=== PATIENT | female | born 1930 | race Caucasian/White ===

== ENCOUNTER 2018-03-30 15:07 | Inpatient (IN) ==
[2018-03-30] MEDS ORDERED: ONDANSETRON 4 MG/2 ML VIAL IV STA (15:23)
[2018-03-30] MEDS ORDERED: diphenhydrAMINE CAP 25 MG CAPSULE PO PRN (15:52)
[2018-03-30] MEDS ORDERED: hydrALAZINE 20 MG/1 ML VIAL IV PRN (15:56)
[2018-03-30] MEDS ORDERED: NITROGLYCERIN SL 0.4 MG TABLET SL PRN (15:56)
[2018-03-30] MEDS ORDERED: amLODIPine 5 MG TABLET PO STA (16:10)
[2018-03-30] MEDS: ENOXAPARIN 40 MG/0.4 ML SYRINGE SUBCUT SCH (18:36)
[2018-03-30] MEDS: ISOSORBIDE MONONITRATE 30 MG TABLET PO SCH (18:36)
[2018-03-30] MEDS: PANTOPRAZOLE 40 MG TABLET PO SCH (18:36)
[2018-03-30] MEDS: DOCUSATE SODIUM 100 MG CAPSULE PO SCH (21:25)
[2018-03-30] MEDS: ATORVASTATIN 80 MG TABLET PO SCH (21:25)
[2018-03-30] MEDS: rOPINIRole 0.25 MG TABLET PO SCH (21:25)
[2018-03-30 22:43] LABS: Apearance,Urine CLEAR (Clear); Bacteria,Urine Occasional /HPF (Few); Bilirubin,Urine Negative (Negative); Blood, Urine Negative (Negative); Glucose,Urine (UA) Negative (Negative); Ketones,Urine Negative (Negative); Nitrite,Urine Negative (Negative); Protein,Urine Negative; RBC,Urine 1 /HPF (0-4); Squamous Epithelial Cell,Urine Occasional /HPF (0-10); Urine Color Yellow (Yellow); Urine Specific Gravity 1.006 (1.001-1.035); Urine Urobilinogen < 2.0 EU/DL (0.2-1.0); WBC,Urine 2 /HPF (0-6)
[2018-03-31] MEDS: ACETAMINOPHEN 325 MG TABLET PO PRN ×2 (00:38→14:05)
[2018-03-31 05:08] LABS: Basophils % 0.5 % (0.0-0.8); Eosinophils # 0.1 10*3/uL (0.0-0.87); Eosinophils % 1.5 % (0.00-10.9); Hematocrit 35.7 VOL% (35.7-47.0); Hemoglobin 11.5 GM/DL (12.0-16.0); Immature Granulocytes % 0.2 %; Immature Granulocytes Absolute 0.01 #; Lymphocytes # 2.4 10*3/uL (1.4-4.0); Lymphocytes % 39.2 % (21.3-54.2); Mean Corpuscular HGB Conc 32.2 GM/DL (32-36); Mean Corpuscular Hemoglobin 32 PG (27-34); Mean Corpuscular Volume 99.4 FL (87-102); Mean Platelet Volume 10.8 FL (9.6-12.0); Monocytes # 0.7 10*3/uL (0.11-0.8); Neutrophils # 2.8 10*3/uL (1.4-7.4); Neutrophils % 46.6 % (38.7-73.9); Platelet Count 209 T/CUMM (130-400); Red Blood Count 3.59 MC/CUMM (3.8-5.5); Red Cell Distribution Width 13.4 % (9.3-17.3)
[2018-03-31 05:27] LABS: Calcium 8.6 MG/DL (8.5-10.1); Osmolality,Calculated 281.4 MOS/KG (273-304); Potassium 3.9 MMOL/L (3.5-5.1); Risk Ratio 3.54; VLDL CHOLESTEROL 19.6 MG/DL
[2018-03-31] MEDS: ENOXAPARIN 40 MG/0.4 ML SYRINGE SUBCUT SCH ×2 (06:05→16:39)
[2018-03-31] MEDS: DOCUSATE SODIUM 100 MG CAPSULE PO SCH ×2 (09:20→21:03)
[2018-03-31] MEDS: LOSARTAN 50 MG TABLET PO SCH (09:20)
[2018-03-31] MEDS: ASPIRIN EC 81 MG TABLET PO SCH (09:21)
[2018-03-31] MEDS: ISOSORBIDE MONONITRATE 30 MG TABLET PO SCH (09:21)
[2018-03-31] MEDS: amLODIPine 5 MG TABLET PO SCH (09:21)
[2018-03-31] MEDS: PANTOPRAZOLE 40 MG TABLET PO SCH (09:21)
[2018-03-31] MEDS: CLOPIDOGREL 75 MG TABLET PO SCH (09:22)
[2018-03-31] MEDS: rOPINIRole 0.25 MG TABLET PO SCH (21:03)
[2018-03-31] MEDS: CARVEDILOL 3.125 MG TABLET PO SCH (21:03)
[2018-03-31] MEDS: ZALEPLON 5 MG CAPSULE PO PRN (21:03)
[2018-03-31] MEDS: ATORVASTATIN 80 MG TABLET PO SCH (21:03)
[2018-04-01 04:11] LABS: Basophils % 0.3 % (0.0-0.8); Eosinophils # 0.1 10*3/uL (0.0-0.87); Eosinophils % 1.5 % (0.00-10.9); Hematocrit 35.8 VOL% (35.7-47.0); Hemoglobin 11.4 GM/DL (12.0-16.0); Immature Granulocytes % 0.3 %; Immature Granulocytes Absolute 0.02 #; Lymphocytes # 2.1 10*3/uL (1.4-4.0); Lymphocytes % 33.9 % (21.3-54.2); Mean Corpuscular HGB Conc 31.8 GM/DL (32-36); Mean Corpuscular Hemoglobin 33 PG (27-34); Mean Platelet Volume 11.5 FL (9.6-12.0); Monocytes % 15.7 % (1.7-12.7); Neutrophils % 48.3 % (38.7-73.9); Platelet Count 177 T/CUMM (130-400); Red Blood Count 3.51 MC/CUMM (3.8-5.5); Red Cell Distribution Width 13.7 % (9.3-17.3); White Blood Count 6.2 T/CUMM (4-12)
[2018-04-01 04:23] LABS: Calcium 8.6 MG/DL (8.5-10.1); Osmolality,Calculated 278.7 MOS/KG (273-304); Potassium 4.1 MMOL/L (3.5-5.1)
[2018-04-01 04:49] LABS: Eosinophils 1 % (0-10); Lymphocytes 31 % (20-55); Segmented Neutrophils 60 % (50-85); Total Cells Counted 100
[2018-04-01 04:50] LABS: Hypochromasia 1+; Platelet Estimate Adequate
[2018-04-01] MEDS: ENOXAPARIN 40 MG/0.4 ML SYRINGE SUBCUT SCH ×2 (05:27→17:08)
[2018-04-01] MEDS ORDERED: REGADENOSON 0.4 MG/5 ML SYRINGE IV ONE (09:13)
[2018-04-01] MEDS: PANTOPRAZOLE 40 MG TABLET PO SCH (12:35)
[2018-04-01] MEDS: CARVEDILOL 3.125 MG TABLET PO SCH ×2 (12:35→20:15)
[2018-04-01] MEDS: DOCUSATE SODIUM 100 MG CAPSULE PO SCH ×2 (12:35→20:14)
[2018-04-01] MEDS: amLODIPine 5 MG TABLET PO SCH (12:35)
[2018-04-01] MEDS: LOSARTAN 50 MG TABLET PO SCH (12:35)
[2018-04-01] MEDS: CLOPIDOGREL 75 MG TABLET PO SCH (12:36)
[2018-04-01] MEDS: OSELTAMIVIR 75 MG CAPSULE PO SCH ×2 (12:36→20:14)
[2018-04-01] MEDS: ASPIRIN EC 81 MG TABLET PO SCH (12:36)
[2018-04-01] MEDS: ISOSORBIDE MONONITRATE 30 MG TABLET PO SCH (12:36)
[2018-04-01] MEDS: rOPINIRole 0.25 MG TABLET PO SCH (20:14)
[2018-04-01] MEDS: ATORVASTATIN 80 MG TABLET PO SCH (20:14)
[2018-04-01] MEDS: ZALEPLON 5 MG CAPSULE PO PRN (20:14)
[2018-04-02 04:23] LABS: Basophils % 0.5 % (0.0-0.8); Eosinophils # 0.1 10*3/uL (0.0-0.87); Eosinophils % 1.6 % (0.00-10.9); Hematocrit 35.3 VOL% (35.7-47.0); Hemoglobin 11.3 GM/DL (12.0-16.0); Immature Granulocytes % 0.2 %; Immature Granulocytes Absolute 0.01 #; Lymphocytes # 2.5 10*3/uL (1.4-4.0); Lymphocytes % 39.6 % (21.3-54.2); Mean Corpuscular Hemoglobin 32 PG (27-34); Mean Corpuscular Volume 100.9 FL (87-102); Mean Platelet Volume 11.4 FL (9.6-12.0); Monocytes % 15.7 % (1.7-12.7); Neutrophils # 2.7 10*3/uL (1.4-7.4); Neutrophils % 42.4 % (38.7-73.9); Platelet Count 195 T/CUMM (130-400); Red Cell Distribution Width 13.3 % (9.3-17.3); White Blood Count 6.3 T/CUMM (4-12)
[2018-04-02 04:32] LABS: Calcium 8.9 MG/DL (8.5-10.1); Osmolality,Calculated 282.4 MOS/KG (273-304); Potassium 3.8 MMOL/L (3.5-5.1)
[2018-04-02 04:47] LABS: Band Neutrophils 1 % (0-10); Eosinophils 1 % (0-10); Hypochromasia 1+; Lymphocytes 41 % (20-55); Platelet Estimate Adequate; Segmented Neutrophils 44 % (50-85); Total Cells Counted 100
[2018-04-02] MEDS: ENOXAPARIN 40 MG/0.4 ML SYRINGE SUBCUT SCH (05:00)
[2018-04-02] MEDS ORDERED: MAGNESIUM SULF RIDER 2 GM in PREMIX 1 EACH IV PRN (08:17)
[2018-04-02] MEDS ORDERED: POTASSIUM CHLORIDE RIDER 10 MEQ in PREMIX 1 EACH IV PRN (08:17)
[2018-04-02] MEDS: SODIUM CHLORIDE 0.45% 1,000 ML IV SCH ×3 (08:49→23:00)
[2018-04-02] MEDS: ASPIRIN EC 81 MG TABLET PO SCH (09:04)
[2018-04-02] MEDS: CLOPIDOGREL 75 MG TABLET PO SCH (09:04)
[2018-04-02] MEDS: DOCUSATE SODIUM 100 MG CAPSULE PO SCH ×2 (09:04→21:16)
[2018-04-02] MEDS: amLODIPine 5 MG TABLET PO SCH (09:04)
[2018-04-02] MEDS: CARVEDILOL 3.125 MG TABLET PO SCH ×2 (09:04→21:16)
[2018-04-02] MEDS: PANTOPRAZOLE 40 MG TABLET PO SCH (09:04)
[2018-04-02] MEDS: OSELTAMIVIR 75 MG CAPSULE PO SCH ×2 (09:04→21:16)
[2018-04-02] MEDS: LOSARTAN 50 MG TABLET PO SCH (09:04)
[2018-04-02] MEDS: ISOSORBIDE MONONITRATE 30 MG TABLET PO SCH (09:04)
[2018-04-02] MEDS ORDERED: DIAZEPAM 5 MG TABLET PO ONE (13:30)
[2018-04-02] MEDS ORDERED: diphenhydrAMINE CAP 25 MG CAPSULE PO ONE (13:30)
[2018-04-02] MEDS ORDERED: MIDAZOLAM 2 MG/2 ML VIAL ONE (13:49)
[2018-04-02] MEDS ORDERED: fentaNYL 100 MCG/2 ML VIAL ONE (13:49)
[2018-04-02] MEDS ORDERED: LIDOCAINE 1% 20 ML VIAL ONE (13:50)
[2018-04-02] MEDS ORDERED: HEPARIN/NACL 0.9% 2 UNITS/ML 1,000 ML IV ONE (13:50)
[2018-04-02] MEDS ORDERED: NITROGLYCERIN DRIP 50 MG/250 ML BOTTLE IV ONE (13:56)
[2018-04-02] MEDS ORDERED: VERAPAMIL 5 MG/2 ML VIAL ONE (13:56)
[2018-04-02] MEDS ORDERED: ENOXAPARIN 60 MG/0.6 ML SYRINGE ONE (13:58)
[2018-04-02] MEDS ORDERED: CLOPIDOGREL 300 MG TABLET ONE (14:36)
[2018-04-02] MEDS: rOPINIRole 0.25 MG TABLET PO SCH (21:16)
[2018-04-02] MEDS: ATORVASTATIN 80 MG TABLET PO SCH (21:16)
[2018-04-03 04:16] LABS: Basophils # 0.1 10*3/uL (0.0-0.2); Basophils % 0.8 % (0.0-0.8); Eosinophils # 0.1 10*3/uL (0.0-0.87); Eosinophils % 2.1 % (0.00-10.9); Hematocrit 36.1 VOL% (35.7-47.0); Hemoglobin 11.5 GM/DL (12.0-16.0); Immature Granulocytes % 0.3 %; Immature Granulocytes Absolute 0.02 #; Lymphocytes # 2.2 10*3/uL (1.4-4.0); Lymphocytes % 34.5 % (21.3-54.2); Mean Corpuscular HGB Conc 31.9 GM/DL (32-36); Mean Corpuscular Hemoglobin 32 PG (27-34); Mean Corpuscular Volume 101.4 FL (87-102); Mean Platelet Volume 10.9 FL (9.6-12.0); Monocytes # 0.9 10*3/uL (0.11-0.8); Monocytes % 13.8 % (1.7-12.7); Neutrophils # 3.1 10*3/uL (1.4-7.4); Neutrophils % 48.5 % (38.7-73.9); Platelet Count 197 T/CUMM (130-400); Red Blood Count 3.56 MC/CUMM (3.8-5.5); Red Cell Distribution Width 13.2 % (9.3-17.3); White Blood Count 6.3 T/CUMM (4-12)
[2018-04-03] MEDS: ACETAMINOPHEN 325 MG TABLET PO PRN (04:20)
[2018-04-03 04:43] LABS: Calcium 8.5 MG/DL (8.5-10.1); Osmolality,Calculated 283.3 MOS/KG (273-304); Potassium 3.8 MMOL/L (3.5-5.1)
[2018-04-03 04:44] LABS: Calcium 8.4 MG/DL (8.5-10.1); Osmolality,Calculated 284.1 MOS/KG (273-304); Potassium 3.9 MMOL/L (3.5-5.1)
[2018-04-03] MEDS: ISOSORBIDE MONONITRATE 30 MG TABLET PO SCH (08:46)
[2018-04-03] MEDS: CARVEDILOL 3.125 MG TABLET PO SCH ×2 (08:46→20:19)
[2018-04-03] MEDS: LOSARTAN 50 MG TABLET PO SCH (08:46)
[2018-04-03] MEDS: ASPIRIN EC 81 MG TABLET PO SCH (08:46)
[2018-04-03] MEDS: PANTOPRAZOLE 40 MG TABLET PO SCH (08:46)
[2018-04-03] MEDS: amLODIPine 5 MG TABLET PO SCH (08:46)
[2018-04-03] MEDS: DOCUSATE SODIUM 100 MG CAPSULE PO SCH ×2 (08:46→20:19)
[2018-04-03] MEDS: CLOPIDOGREL 75 MG TABLET PO SCH (08:47)
[2018-04-03] MEDS: POLYETHYLENE GLYCOL POWDER 17 GM PACK PO SCH (17:20)
[2018-04-03] MEDS: ATORVASTATIN 80 MG TABLET PO SCH (20:19)
[2018-04-03] MEDS: rOPINIRole 0.25 MG TABLET PO SCH (20:19)
[2018-04-03] MEDS: ZALEPLON 5 MG CAPSULE PO PRN (20:20)
[2018-04-04 04:28] LABS: Basophils % 0.6 % (0.0-0.8); Eosinophils # 0.2 10*3/uL (0.0-0.87); Eosinophils % 3.5 % (0.00-10.9); Hemoglobin 11.7 GM/DL (12.0-16.0); Immature Granulocytes % 0.2 %; Immature Granulocytes Absolute 0.01 #; Lymphocytes # 1.6 10*3/uL (1.4-4.0); Mean Corpuscular HGB Conc 32.5 GM/DL (32-36); Mean Corpuscular Hemoglobin 33 PG (27-34); Mean Corpuscular Volume 100.8 FL (87-102); Mean Platelet Volume 11.2 FL (9.6-12.0); Monocytes # 0.7 10*3/uL (0.11-0.8); Monocytes % 14.4 % (1.7-12.7); Neutrophils # 2.3 10*3/uL (1.4-7.4); Neutrophils % 47.3 % (38.7-73.9); Platelet Count 194 T/CUMM (130-400); Red Blood Count 3.57 MC/CUMM (3.8-5.5); Red Cell Distribution Width 13.2 % (9.3-17.3); White Blood Count 4.8 T/CUMM (4-12)
[2018-04-04 04:44] LABS: Calcium 8.5 MG/DL (8.5-10.1); Osmolality,Calculated 280.4 MOS/KG (273-304); Potassium 3.8 MMOL/L (3.5-5.1)
[2018-04-04] MEDS: POLYETHYLENE GLYCOL POWDER 17 GM PACK PO SCH (09:54)
[2018-04-04] MEDS: PANTOPRAZOLE 40 MG TABLET PO SCH (09:55)
[2018-04-04] MEDS: ISOSORBIDE MONONITRATE 30 MG TABLET PO SCH (09:55)
[2018-04-04] MEDS: amLODIPine 5 MG TABLET PO SCH (09:55)
[2018-04-04] MEDS: ASPIRIN EC 81 MG TABLET PO SCH (09:55)
[2018-04-04] MEDS: DOCUSATE SODIUM 100 MG CAPSULE PO SCH ×2 (09:55→21:48)
[2018-04-04] MEDS: CARVEDILOL 3.125 MG TABLET PO SCH ×2 (09:55→21:48)
[2018-04-04] MEDS: LOSARTAN 50 MG TABLET PO SCH (09:55)
[2018-04-04] MEDS: CLOPIDOGREL 75 MG TABLET PO SCH (09:55)
[2018-04-04] MEDS: ZALEPLON 5 MG CAPSULE PO PRN (21:48)
[2018-04-04] MEDS: ATORVASTATIN 80 MG TABLET PO SCH (21:48)
[2018-04-04] MEDS: rOPINIRole 0.25 MG TABLET PO SCH (21:55)
[2018-04-05 04:10] LABS: Basophils # 0.1 10*3/uL (0.0-0.2); Basophils % 0.9 % (0.0-0.8); Eosinophils # 0.3 10*3/uL (0.0-0.87); Eosinophils % 4.6 % (0.00-10.9); Hematocrit 34.8 VOL% (35.7-47.0); Hemoglobin 11.1 GM/DL (12.0-16.0); Immature Granulocytes % 0.4 %; Immature Granulocytes Absolute 0.02 #; Lymphocytes # 1.6 10*3/uL (1.4-4.0); Lymphocytes % 29.5 % (21.3-54.2); Mean Corpuscular HGB Conc 31.9 GM/DL (32-36); Mean Corpuscular Hemoglobin 32 PG (27-34); Mean Corpuscular Volume 100.6 FL (87-102); Mean Platelet Volume 10.9 FL (9.6-12.0); Monocytes # 0.8 10*3/uL (0.11-0.8); Monocytes % 13.9 % (1.7-12.7); Neutrophils # 2.8 10*3/uL (1.4-7.4); Neutrophils % 50.7 % (38.7-73.9); Platelet Count 192 T/CUMM (130-400); Red Blood Count 3.46 MC/CUMM (3.8-5.5); Red Cell Distribution Width 13.2 % (9.3-17.3); White Blood Count 5.5 T/CUMM (4-12)
[2018-04-05 04:35] LABS: Calcium 8.5 MG/DL (8.5-10.1); Osmolality,Calculated 283.3 MOS/KG (273-304); Potassium 4.3 MMOL/L (3.5-5.1)
[2018-04-05] MEDS: CARVEDILOL 3.125 MG TABLET PO SCH (08:36)
[2018-04-05] MEDS: CLOPIDOGREL 75 MG TABLET PO SCH (08:36)
[2018-04-05] MEDS: DOCUSATE SODIUM 100 MG CAPSULE PO SCH (08:36)
[2018-04-05] MEDS: PANTOPRAZOLE 40 MG TABLET PO SCH (08:36)
[2018-04-05] MEDS: ASPIRIN EC 81 MG TABLET PO SCH (08:36)
[2018-04-05] MEDS: amLODIPine 5 MG TABLET PO SCH (08:36)
[2018-04-05] MEDS: LOSARTAN 50 MG TABLET PO SCH (08:36)
[2018-04-05] MEDS: POLYETHYLENE GLYCOL POWDER 17 GM PACK PO SCH (08:36)
[2018-04-05] MEDS: ISOSORBIDE MONONITRATE 30 MG TABLET PO SCH (08:36)
[2018-04-05 12:03] VITALS: BP 138/72
== END 2018-04-05 13:33 | disposition swing bed (61) | DRG 247 ==
LOC: EDBD → EDUNIT# → N.ED 15:07 → N.EDINP 15:52 → N.TELEN 16:45
PROVIDERS: ADMIT Internal Medicine Cardiovascular Disease; ATTEND Internal Medicine Cardiovascular Disease
PROC: CLCCHCL (ICD-10-PCS; 2018-04-02 15:45)

== ENCOUNTER 2021-01-02 08:09 | Inpatient (IN) ==
[2021-01-02 09:09] LABS: Basophils % 0.4 % (0.0-0.8); Eosinophils # 0.2 10*3/uL (0.0-0.87); Eosinophils % 2.2 % (0.00-10.9); Hematocrit 26.7 VOL% (35.7-47.0); Hemoglobin 7.8 GM/DL (12.0-16.0); Immature Granulocytes % 0.3 %; Immature Granulocytes Absolute 0.02 #; Lymphocytes # 1.4 10*3/uL (1.4-4.0); Lymphocytes % 19.4 % (21.3-54.2); Mean Corpuscular HGB Conc 29.2 GM/DL (32-36); Mean Corpuscular Volume 87.8 FL (87-102); Mean Platelet Volume 11.1 FL (9.6-12.0); Monocytes % 8.8 % (1.7-12.7); Neutrophils % 68.9 % (38.7-73.9); Platelet Count 239 T/CUMM (130-400); Red Blood Count 3.04 MC/CUMM (3.8-5.5); Red Cell Distribution Width 16.8 % (9.3-17.3); White Blood Count 7.3 T/CUMM (4-12)
[2021-01-02 09:44] LABS: Bilirubin,Urine Negative (Negative); Blood, Urine Small mg/dL (Negative); Glucose,Urine (UA) Negative (Negative); Ketones,Urine Negative (Negative); Nitrite,Urine Negative (Negative); Protein,Urine Negative; RBC,Urine 1 /HPF (0-4); Squamous Epithelial Cell,Urine Occasional /HPF (0-10); Urine Appearance CLEAR (Clear); Urine Color Colorless (Yellow); Urine Specific Gravity 1.004 (1.001-1.035); Urine Urobilinogen < 2.0 EU/DL (0.2-1.0)
[2021-01-02 10:11] LABS: Alanine Aminotransferase 28 U/L (13-56); Albumin 2.9 G/DL (3.4-5.0); Alkaline Phosphatase 87 U/L (45-117); Aspartate Amino Transferase 40 U/L (0-37); Bilirubin,Total < 0.39 MG/DL (0.20-1.00); Blood Urea Nitrogen 15 MG/DL (7-18); Calcium 8.4 MG/DL (8.5-10.1); Carbon Dioxide 29 MMOL/L (21-32); Estimated Glom Filtration Rate 82 ML/MIN; Glucose 88 MG/DL (74-106); Osmolality,Calculated 261.7 MOS/KG (273-304); Potassium 5.1 MMOL/L (3.5-5.1); Sodium 131 MMOL/L (136-145); Total Protein 6.5 G/DL (6.4-8.2)
[2021-01-02] MEDS ORDERED: FUROSEMIDE 20 MG/2 ML VIAL IV STA (12:12)
[2021-01-02] MEDS ORDERED: FUROSEMIDE 40 MG/4 ML VIAL ONE (12:19)
[2021-01-02 13:43] LABS: Basophils % 0.5 % (0.0-0.8); Eosinophils # 0.2 10*3/uL (0.0-0.87); Eosinophils % 2.8 % (0.00-10.9); Hematocrit 27.5 VOL% (35.7-47.0); Hemoglobin 8.3 GM/DL (12.0-16.0); Immature Granulocytes % 0.2 %; Immature Granulocytes Absolute 0.01 #; Lymphocytes # 1.9 10*3/uL (1.4-4.0); Mean Corpuscular HGB Conc 30.2 GM/DL (32-36); Mean Corpuscular Volume 86.8 FL (87-102); Mean Platelet Volume 10.4 FL (9.6-12.0); Monocytes % 12.5 % (1.7-12.7); Platelet Count 239 T/CUMM (130-400); Red Blood Count 3.17 MC/CUMM (3.8-5.5); Red Cell Distribution Width 16.6 % (9.3-17.3); White Blood Count 6.2 T/CUMM (4-12)
[2021-01-02 14:04] LABS: Folate 15.54 NG/ML (5.38-24.0); Vitamin B12 510 PG/ML (211-911)
[2021-01-02 14:12] LABS: Eosinophils 3 % (0-10); Hypochromasia 1+; Lymphocytes 31 % (20-55); Segmented Neutrophils 50 % (50-85); Target Cells Few; Total Cells Counted 100
[2021-01-02 14:13] LABS: Anisocytosis 1+; Elliptocytes Few; Platelet Estimate Adequate; Schistocytes Few
[2021-01-02 14:14] LABS: Polychromasia Few
[2021-01-02 15:03] LABS: Sedimentation Rate-Westergren 87 MM/HR (0-30)
[2021-01-02] MEDS ORDERED: ONDANSETRON 4 MG/2 ML VIAL IV PRN (16:07)
[2021-01-02] MEDS: ACETAMINOPHEN 325 MG TABLET PO PRN (16:43)
[2021-01-02] MEDS: FUROSEMIDE 20 MG/2 ML VIAL IV SCH (18:26)
[2021-01-02] MEDS: ATORVASTATIN 20 MG TABLET PO SCH (21:49)
[2021-01-02] MEDS: rOPINIRole 1 MG TABLET PO SCH (21:49)
[2021-01-02] MEDS: CLOPIDOGREL 75 MG TABLET PO SCH (21:49)
[2021-01-02] MEDS: DOCUSATE SODIUM 100 MG CAPSULE PO SCH (21:49)
[2021-01-02] MEDS: LOSARTAN 25 MG TABLET PO SCH (21:49)
[2021-01-02] MEDS: carvediloL 12.5 MG TABLET PO SCH (21:49)
[2021-01-02] MEDS: APIXABAN 2.5 MG TABLET PO SCH (21:49)
[2021-01-02] MEDS: HYDROXYCHLOROQUINE 200 MG TABLET PO SCH (21:49)
[2021-01-03] MEDS: FUROSEMIDE 20 MG/2 ML VIAL IV SCH ×2 (00:47→06:45)
[2021-01-03 05:43] LABS: Basophils # 0.1 10*3/uL (0.0-0.2); Basophils % 0.7 % (0.0-0.8); Eosinophils # 0.2 10*3/uL (0.0-0.87); Eosinophils % 2.2 % (0.00-10.9); Hematocrit 27.2 VOL% (35.7-47.0); Hemoglobin 7.8 GM/DL (12.0-16.0); Immature Granulocytes % 0.5 %; Immature Granulocytes Absolute 0.04 #; Lymphocytes # 1.3 10*3/uL (1.4-4.0); Lymphocytes % 18.2 % (21.3-54.2); Mean Corpuscular HGB Conc 28.7 GM/DL (32-36); Mean Corpuscular Volume 88.3 FL (87-102); Mean Platelet Volume 11.1 FL (9.6-12.0); Monocytes % 11.8 % (1.7-12.7); Neutrophils % 66.6 % (38.7-73.9); Platelet Count 240 T/CUMM (130-400); Red Blood Count 3.08 MC/CUMM (3.8-5.5); Red Cell Distribution Width 16.9 % (9.3-17.3); White Blood Count 7.4 T/CUMM (4-12)
[2021-01-03 06:04] LABS: Hypochromasia 1+; Microcytosis 1+; Platelet Estimate Adequate
[2021-01-03 06:07] LABS: Calcium 8.5 MG/DL (8.5-10.1); Osmolality,Calculated 278.5 MOS/KG (273-304); Potassium 4.1 MMOL/L (3.5-5.1)
[2021-01-03 08:46] LABS: Hemoglobin A1 (Alkaline) 97.8 % (96.5-98.5); Hemoglobin A2 (Alkaline) 2.2 % (1.5-3.5)
[2021-01-03] MEDS ORDERED: PANTOPRAZOLE 40 MG TABLET PO SCH (09:00)
[2021-01-03] MEDS: HYDROXYCHLOROQUINE 200 MG TABLET PO SCH ×2 (09:20→20:03)
[2021-01-03] MEDS: APIXABAN 2.5 MG TABLET PO SCH ×2 (09:20→20:02)
[2021-01-03] MEDS: DOCUSATE SODIUM 100 MG CAPSULE PO SCH ×2 (09:20→20:02)
[2021-01-03] MEDS: LORATADINE 10 MG TABLET PO SCH (09:20)
[2021-01-03] MEDS: PANTOPRAZOLE 40 MG TABLET PO SCH (09:20)
[2021-01-03] MEDS: carvediloL 12.5 MG TABLET PO SCH ×2 (09:32→20:03)
[2021-01-03] MEDS: amLODIPine 2.5 MG TABLET PO SCH (09:32)
[2021-01-03] MEDS ORDERED: FUROSEMIDE 20 MG/2 ML VIAL IV SCH (16:00)
[2021-01-03] MEDS: FUROSEMIDE 20 MG TABLET PO SCH (16:02)
[2021-01-03] MEDS: ATORVASTATIN 20 MG TABLET PO SCH (20:02)
[2021-01-03] MEDS: ACETAMINOPHEN 325 MG TABLET PO PRN (20:03)
[2021-01-03] MEDS: rOPINIRole 1 MG TABLET PO SCH (20:03)
[2021-01-03] MEDS: CLOPIDOGREL 75 MG TABLET PO SCH (20:03)
[2021-01-03] MEDS: LOSARTAN 25 MG TABLET PO SCH (20:04)
[2021-01-04] MEDS: ACETAMINOPHEN 325 MG TABLET PO PRN ×2 (06:19→20:42)
[2021-01-04 06:49] LABS: Basophils # 0.1 10*3/uL (0.0-0.2); Basophils % 0.7 % (0.0-0.8); Eosinophils # 0.3 10*3/uL (0.0-0.87); Eosinophils % 4.3 % (0.00-10.9); Hematocrit 27.4 VOL% (35.7-47.0); Hemoglobin 8.3 GM/DL (12.0-16.0); Immature Granulocytes % 0.3 %; Immature Granulocytes Absolute 0.02 #; Lymphocytes % 28.7 % (21.3-54.2); Mean Corpuscular HGB Conc 30.3 GM/DL (32-36); Mean Corpuscular Volume 87.8 FL (87-102); Mean Platelet Volume 10.9 FL (9.6-12.0); Monocytes % 14.3 % (1.7-12.7); Neutrophils % 51.7 % (38.7-73.9); Platelet Count 248 T/CUMM (130-400); Red Blood Count 3.12 MC/CUMM (3.8-5.5); Red Cell Distribution Width 16.8 % (9.3-17.3); White Blood Count 7.1 T/CUMM (4-12)
[2021-01-04 06:56] LABS: Calcium 8.4 MG/DL (8.5-10.1); Potassium 4.1 MMOL/L (3.5-5.1)
[2021-01-04] MEDS: APIXABAN 2.5 MG TABLET PO SCH (10:32)
[2021-01-04] MEDS: PANTOPRAZOLE 40 MG TABLET PO SCH (11:27)
[2021-01-04] MEDS: HYDROXYCHLOROQUINE 200 MG TABLET PO SCH ×2 (11:27→20:39)
[2021-01-04] MEDS: FUROSEMIDE 20 MG TABLET PO SCH ×2 (11:27→16:39)
[2021-01-04] MEDS: carvediloL 12.5 MG TABLET PO SCH ×2 (11:28→20:39)
[2021-01-04] MEDS: amLODIPine 2.5 MG TABLET PO SCH (11:28)
[2021-01-04] MEDS: LORATADINE 10 MG TABLET PO SCH (11:28)
[2021-01-04] MEDS: DOCUSATE SODIUM 100 MG CAPSULE PO SCH ×2 (11:28→20:38)
[2021-01-04] MEDS ORDERED: BISACODYL 5 MG TABLET PO ONE (11:47)
[2021-01-04] MEDS: rOPINIRole 1 MG TABLET PO SCH (20:39)
[2021-01-04] MEDS: LOSARTAN 25 MG TABLET PO SCH (20:39)
[2021-01-04] MEDS: ATORVASTATIN 20 MG TABLET PO SCH (20:39)
[2021-01-05 06:09] LABS: Calcium 8.5 MG/DL (8.5-10.1); Osmolality,Calculated 285.1 MOS/KG (273-304); Potassium 4.1 MMOL/L (3.5-5.1)
[2021-01-05 06:42] LABS: Basophils # 0.1 10*3/uL (0.0-0.2); Basophils % 0.9 % (0.0-0.8); Eosinophils # 0.3 10*3/uL (0.0-0.87); Eosinophils % 3.7 % (0.00-10.9); Hematocrit 27.8 VOL% (35.7-47.0); Hemoglobin 8.1 GM/DL (12.0-16.0); Immature Granulocytes % 0.3 %; Immature Granulocytes Absolute 0.02 #; Lymphocytes # 2.1 10*3/uL (1.4-4.0); Mean Corpuscular HGB Conc 29.1 GM/DL (32-36); Mean Corpuscular Volume 90.3 FL (87-102); Mean Platelet Volume 11.6 FL (9.6-12.0); Monocytes % 14.4 % (1.7-12.7); Neutrophils % 50.7 % (38.7-73.9); Platelet Count 244 T/CUMM (130-400); Red Blood Count 3.08 MC/CUMM (3.8-5.5); Red Cell Distribution Width 16.7 % (9.3-17.3)
[2021-01-05] MEDS: amLODIPine 2.5 MG TABLET PO SCH (08:54)
[2021-01-05] MEDS: LORATADINE 10 MG TABLET PO SCH (08:55)
[2021-01-05] MEDS: HYDROXYCHLOROQUINE 200 MG TABLET PO SCH ×2 (08:55→21:02)
[2021-01-05] MEDS: FUROSEMIDE 20 MG TABLET PO SCH ×2 (08:55→16:19)
[2021-01-05] MEDS: PANTOPRAZOLE 40 MG TABLET PO SCH (08:55)
[2021-01-05] MEDS: DOCUSATE SODIUM 100 MG CAPSULE PO SCH ×2 (08:55→21:01)
[2021-01-05] MEDS: carvediloL 12.5 MG TABLET PO SCH ×2 (08:55→21:01)
[2021-01-05] MEDS ORDERED: POLYETHYLENE GLYCOL POWDER 17 GM PACK PO SCH (09:00)
[2021-01-05] MEDS: ACETAMINOPHEN 325 MG TABLET PO PRN ×2 (15:48→21:05)
[2021-01-05] MEDS: LOSARTAN 25 MG TABLET PO SCH (21:01)
[2021-01-05] MEDS: ATORVASTATIN 20 MG TABLET PO SCH (21:01)
[2021-01-05] MEDS: POLYETHYLENE GLYCOL POWDER 17 GM PACK PO SCH (21:02)
[2021-01-05] MEDS: rOPINIRole 1 MG TABLET PO SCH (21:02)
[2021-01-06] MEDS: FUROSEMIDE 20 MG TABLET PO SCH ×2 (08:34→16:23)
[2021-01-06] MEDS: POLYETHYLENE GLYCOL POWDER 17 GM PACK PO SCH ×2 (08:34→20:13)
[2021-01-06] MEDS: PANTOPRAZOLE 40 MG TABLET PO SCH (08:34)
[2021-01-06] MEDS: ACETAMINOPHEN 325 MG TABLET PO PRN ×2 (08:39→14:54)
[2021-01-06] MEDS: amLODIPine 2.5 MG TABLET PO SCH (08:39)
[2021-01-06] MEDS: DOCUSATE SODIUM 100 MG CAPSULE PO SCH ×2 (08:40→20:12)
[2021-01-06] MEDS: LORATADINE 10 MG TABLET PO SCH (08:40)
[2021-01-06] MEDS: carvediloL 12.5 MG TABLET PO SCH ×2 (08:40→20:13)
[2021-01-06] MEDS: HYDROXYCHLOROQUINE 200 MG TABLET PO SCH ×2 (08:40→20:12)
[2021-01-06] MEDS: ENOXAPARIN 40 MG/0.4 ML SYRINGE SUBCUT SCH (10:01)
[2021-01-06] MEDS: rOPINIRole 1 MG TABLET PO SCH (20:12)
[2021-01-06] MEDS: LOSARTAN 25 MG TABLET PO SCH (20:12)
[2021-01-06] MEDS: ATORVASTATIN 20 MG TABLET PO SCH (20:12)
[2021-01-07 04:47] LABS: Basophils # 0.1 10*3/uL (0.0-0.2); Basophils % 0.9 % (0.0-0.8); Eosinophils # 0.2 10*3/uL (0.0-0.87); Eosinophils % 2.6 % (0.00-10.9); Hematocrit 27.7 VOL% (35.7-47.0); Immature Granulocytes % 0.2 %; Immature Granulocytes Absolute 0.01 #; Lymphocytes # 1.9 10*3/uL (1.4-4.0); Lymphocytes % 29.3 % (21.3-54.2); Mean Corpuscular HGB Conc 28.9 GM/DL (32-36); Mean Corpuscular Volume 87.1 FL (87-102); Mean Platelet Volume 11.1 FL (9.6-12.0); Monocytes % 13.5 % (1.7-12.7); Neutrophils % 53.5 % (38.7-73.9); Platelet Count 269 T/CUMM (130-400); Red Blood Count 3.18 MC/CUMM (3.8-5.5); White Blood Count 6.5 T/CUMM (4-12)
[2021-01-07 05:08] LABS: Hypochromasia 2+; Microcytosis 1+
[2021-01-07 05:09] LABS: Ovalocytes Slight; Platelet Estimate Normal; Target Cells Slight
[2021-01-07 05:11] LABS: Calcium 8.8 MG/DL (8.5-10.1); Osmolality,Calculated 285.1 MOS/KG (273-304); Potassium 4.4 MMOL/L (3.5-5.1)
[2021-01-07] MEDS: LORATADINE 10 MG TABLET PO SCH (08:38)
[2021-01-07] MEDS: carvediloL 12.5 MG TABLET PO SCH ×2 (08:38→20:29)
[2021-01-07] MEDS: ENOXAPARIN 40 MG/0.4 ML SYRINGE SUBCUT SCH (08:38)
[2021-01-07] MEDS: POLYETHYLENE GLYCOL POWDER 17 GM PACK PO SCH ×2 (08:38→20:32)
[2021-01-07] MEDS: HYDROXYCHLOROQUINE 200 MG TABLET PO SCH ×2 (08:38→20:30)
[2021-01-07] MEDS: FUROSEMIDE 20 MG TABLET PO SCH ×2 (08:38→17:18)
[2021-01-07] MEDS: PANTOPRAZOLE 40 MG TABLET PO SCH ×2 (08:38→20:30)
[2021-01-07] MEDS: amLODIPine 2.5 MG TABLET PO SCH (08:38)
[2021-01-07] MEDS: DOCUSATE SODIUM 100 MG CAPSULE PO SCH ×2 (08:38→20:29)
[2021-01-07] MEDS: ACETAMINOPHEN 325 MG TABLET PO PRN (08:46)
[2021-01-07] MEDS ORDERED: ASPIRIN EC 325 MG TABLET PO ONE (10:13)
[2021-01-07] MEDS ORDERED: NITROGLYCERIN SL 0.4 MG TABLET SL ONE (10:13)
[2021-01-07] MEDS ORDERED: NITROGLYCERIN SL 0.4 MG TABLET SL PRN (10:13)
[2021-01-07] MEDS ORDERED: ASPIRIN CHEW 81 MG TABLET PO ONE ×2 (10:13)
[2021-01-07] MEDS ORDERED: MORPHINE 2 MG/1 ML SYRINGE IM ONE (10:14)
[2021-01-07] MEDS ORDERED: MORPHINE 2 MG/1 ML SYRINGE ONE (10:16)
[2021-01-07] MEDS ORDERED: MORPHINE 2 MG/1 ML SYRINGE IV ONE (11:00)
[2021-01-07] MEDS: ISOSORBIDE MONONITRATE 30 MG TABLET PO SCH (14:39)
[2021-01-07] MEDS: RANOLAZINE 500 MG TABLET PO SCH (20:29)
[2021-01-07] MEDS: LOSARTAN 25 MG TABLET PO SCH (20:30)
[2021-01-07] MEDS: rOPINIRole 1 MG TABLET PO SCH (20:30)
[2021-01-07] MEDS: ATORVASTATIN 20 MG TABLET PO SCH (20:30)
[2021-01-08 05:19] LABS: Basophils % 0.3 % (0.0-0.8); Eosinophils # 0.1 10*3/uL (0.0-0.87); Eosinophils % 0.5 % (0.00-10.9); Hematocrit 26.9 VOL% (35.7-47.0); Hemoglobin 7.9 GM/DL (12.0-16.0); Immature Granulocytes % 1.5 %; Immature Granulocytes Absolute 0.19 #; Lymphocytes # 1.9 10*3/uL (1.4-4.0); Mean Corpuscular HGB Conc 29.4 GM/DL (32-36); Mean Corpuscular Volume 85.4 FL (87-102); Mean Platelet Volume 10.9 FL (9.6-12.0); Neutrophils % 73.7 % (38.7-73.9); Platelet Count 254 T/CUMM (130-400); Red Blood Count 3.15 MC/CUMM (3.8-5.5); Red Cell Distribution Width 17.2 % (9.3-17.3); White Blood Count 12.6 T/CUMM (4-12)
[2021-01-08 06:01] LABS: Calcium 8.5 MG/DL (8.5-10.1); Osmolality,Calculated 278.7 MOS/KG (273-304); Potassium 3.8 MMOL/L (3.5-5.1)
[2021-01-08] MEDS: RANOLAZINE 500 MG TABLET PO SCH ×2 (09:47→20:18)
[2021-01-08] MEDS: amLODIPine 2.5 MG TABLET PO SCH (09:47)
[2021-01-08] MEDS: ISOSORBIDE MONONITRATE 30 MG TABLET PO SCH (09:47)
[2021-01-08] MEDS: HYDROXYCHLOROQUINE 200 MG TABLET PO SCH ×2 (09:47→20:18)
[2021-01-08] MEDS: DOCUSATE SODIUM 100 MG CAPSULE PO SCH ×2 (09:47→20:18)
[2021-01-08] MEDS: carvediloL 12.5 MG TABLET PO SCH ×2 (09:47→20:18)
[2021-01-08] MEDS: PANTOPRAZOLE 40 MG TABLET PO SCH ×2 (09:47→20:18)
[2021-01-08] MEDS: LORATADINE 10 MG TABLET PO SCH (09:47)
[2021-01-08] MEDS: ENOXAPARIN 40 MG/0.4 ML SYRINGE SUBCUT SCH (09:48)
[2021-01-08] MEDS: POLYETHYLENE GLYCOL POWDER 17 GM PACK PO SCH ×2 (09:48→20:19)
[2021-01-08] MEDS: FUROSEMIDE 20 MG TABLET PO SCH ×2 (10:25→16:44)
[2021-01-08] MEDS: FUROSEMIDE 40 MG/4 ML VIAL IV SCH (10:30)
[2021-01-08] MEDS: ACETAMINOPHEN 325 MG TABLET PO PRN (14:50)
[2021-01-08] MEDS: ATORVASTATIN 20 MG TABLET PO SCH (20:18)
[2021-01-08] MEDS: rOPINIRole 1 MG TABLET PO SCH (20:18)
[2021-01-08] MEDS: LOSARTAN 25 MG TABLET PO SCH (20:18)
[2021-01-09 05:33] LABS: Basophils # 0.1 10*3/uL (0.0-0.2); Eosinophils # 0.3 10*3/uL (0.0-0.87); Eosinophils % 4.8 % (0.00-10.9); Hematocrit 26.5 VOL% (35.7-47.0); Hemoglobin 7.6 GM/DL (12.0-16.0); Immature Granulocytes % 0.3 %; Immature Granulocytes Absolute 0.02 #; Lymphocytes # 2.1 10*3/uL (1.4-4.0); Lymphocytes % 29.4 % (21.3-54.2); Mean Corpuscular HGB Conc 28.7 GM/DL (32-36); Mean Corpuscular Volume 86.6 FL (87-102); Mean Platelet Volume 11.1 FL (9.6-12.0); Monocytes % 13.1 % (1.7-12.7); Neutrophils % 51.4 % (38.7-73.9); Platelet Count 252 T/CUMM (130-400); Red Blood Count 3.06 MC/CUMM (3.8-5.5); Red Cell Distribution Width 17.1 % (9.3-17.3)
[2021-01-09 05:52] LABS: Calcium 8.4 MG/DL (8.5-10.1); Osmolality,Calculated 277.7 MOS/KG (273-304); Potassium 4.2 MMOL/L (3.5-5.1)
[2021-01-09 05:59] LABS: Anisocytosis 1+; Platelet Estimate Normal; Target Cells Few
[2021-01-09 06:00] LABS: Macrocytosis Slight
[2021-01-09] MEDS: carvediloL 12.5 MG TABLET PO SCH ×2 (09:20→23:09)
[2021-01-09] MEDS: amLODIPine 2.5 MG TABLET PO SCH (09:20)
[2021-01-09] MEDS: RANOLAZINE 500 MG TABLET PO SCH ×2 (09:20→20:24)
[2021-01-09] MEDS: ISOSORBIDE MONONITRATE 30 MG TABLET PO SCH (09:20)
[2021-01-09] MEDS: FUROSEMIDE 40 MG/4 ML VIAL IV SCH (09:21)
[2021-01-09] MEDS: LORATADINE 10 MG TABLET PO SCH (09:21)
[2021-01-09] MEDS: HYDROXYCHLOROQUINE 200 MG TABLET PO SCH ×2 (09:21→20:24)
[2021-01-09] MEDS: DOCUSATE SODIUM 100 MG CAPSULE PO SCH ×2 (09:21→20:24)
[2021-01-09] MEDS: PANTOPRAZOLE 40 MG TABLET PO SCH ×2 (09:21→20:24)
[2021-01-09] MEDS: POLYETHYLENE GLYCOL POWDER 17 GM PACK PO SCH ×2 (11:01→20:24)
[2021-01-09] MEDS: rOPINIRole 1 MG TABLET PO SCH (20:24)
[2021-01-09] MEDS: ACETAMINOPHEN 325 MG TABLET PO PRN (20:24)
[2021-01-09] MEDS: ATORVASTATIN 20 MG TABLET PO SCH (20:24)
[2021-01-09] MEDS: LOSARTAN 25 MG TABLET PO SCH (23:09)
[2021-01-10 05:29] LABS: Hematocrit 26.6 VOL% (35.7-47.0); Hemoglobin 7.6 GM/DL (12.0-16.0)
[2021-01-10 05:31] LABS: Basophils # 0.1 10*3/uL (0.0-0.2); Basophils % 0.9 % (0.0-0.8); Eosinophils # 0.4 10*3/uL (0.0-0.87); Eosinophils % 6.4 % (0.00-10.9); Hematocrit 27.7 VOL% (35.7-47.0); Immature Granulocytes % 0.2 %; Immature Granulocytes Absolute 0.01 #; Lymphocytes # 2.1 10*3/uL (1.4-4.0); Lymphocytes % 32.3 % (21.3-54.2); Mean Corpuscular HGB Conc 28.2 GM/DL (32-36); Mean Corpuscular Volume 89.1 FL (87-102); Mean Platelet Volume 11.5 FL (9.6-12.0); Monocytes % 14.4 % (1.7-12.7); Neutrophils % 45.8 % (38.7-73.9); Platelet Count 265 T/CUMM (130-400); Red Blood Count 3.11 MC/CUMM (3.8-5.5); White Blood Count 6.4 T/CUMM (4-12)
[2021-01-10 05:39] LABS: Hemoglobin 7.8 GM/DL (12.0-16.0)
[2021-01-10 06:06] LABS: Calcium 8.7 MG/DL (8.5-10.1); Osmolality,Calculated 281.4 MOS/KG (273-304); Potassium 4.4 MMOL/L (3.5-5.1)
[2021-01-10 06:10] LABS: Hypochromasia 1+; Microcytosis 1+; Platelet Estimate Normal; Polychromasia Slight
[2021-01-10] MEDS ORDERED: LACTATED RINGERS 1,000 ML IV SCH (06:30)
[2021-01-10] MEDS ORDERED: propofoL 200 MG/20 ML VIAL IV ONE (08:23)
[2021-01-10] MEDS ORDERED: LIDOCAINE 2% 5 ML VIAL ONE (08:23)
[2021-01-10] MEDS: CLOPIDOGREL 75 MG TABLET PO SCH ×2 (09:06→09:07)
[2021-01-10] MEDS: amLODIPine 2.5 MG TABLET PO SCH (10:14)
[2021-01-10] MEDS: DOCUSATE SODIUM 100 MG CAPSULE PO SCH (10:14)
[2021-01-10] MEDS: LORATADINE 10 MG TABLET PO SCH (10:15)
[2021-01-10] MEDS: PANTOPRAZOLE 40 MG TABLET PO SCH (10:15)
[2021-01-10] MEDS: ISOSORBIDE MONONITRATE 30 MG TABLET PO SCH (10:15)
[2021-01-10] MEDS: HYDROXYCHLOROQUINE 200 MG TABLET PO SCH (10:16)
[2021-01-10] MEDS: RANOLAZINE 500 MG TABLET PO SCH (10:16)
[2021-01-10] MEDS: POLYETHYLENE GLYCOL POWDER 17 GM PACK PO SCH ×2 (10:16→10:17)
[2021-01-10] MEDS: carvediloL 12.5 MG TABLET PO SCH (10:16)
[2021-01-10] MEDS: FUROSEMIDE 40 MG/4 ML VIAL IV SCH (10:20)
[2021-01-10 16:50] VITALS: BP 115/38
== END 2021-01-10 17:42 | disposition home health service (06) | DRG 291 ==
LOC: EDUNIT# → EDBD → N.ED 08:09 → N.EDINP 12:35 → N.TELEN 15:45
PROVIDERS: ADMIT Internal Medicine; ATTEND Internal Medicine

== ENCOUNTER 2021-03-10 17:09 | Inpatient (IN) ==
[2021-03-10 18:05] LABS: Basophils % 0.3 % (0.0-0.8); Eosinophils # 0.1 10*3/uL (0.0-0.87); Hematocrit 25.5 VOL% (35.7-47.0); Hemoglobin 7.4 GM/DL (12.0-16.0); Immature Granulocytes % 0.3 %; Immature Granulocytes Absolute 0.03 #; Lymphocytes # 1.6 10*3/uL (1.4-4.0); Lymphocytes % 18.3 % (21.3-54.2); Mean Corpuscular Volume 74.3 FL (87-102); Mean Platelet Volume 11.1 FL (9.6-12.0); Monocytes % 13.3 % (1.7-12.7); NRBC # 0.06 10*3/uL; Neutrophils % 66.8 % (38.7-73.9); Platelet Count 286 T/CUMM (130-400); Red Blood Count 3.43 MC/CUMM (3.8-5.5); Red Cell Distribution Width 18.5 % (9.3-17.3); White Blood Count 8.6 T/CUMM (4-12)
[2021-03-10 18:16] LABS: INR 1.1; Partial Thromboplastin Time 31.6 SECS (23.8-32.1)
[2021-03-10 18:19] LABS: Alanine Aminotransferase 36 U/L (13-56); Albumin 3.3 G/DL (3.4-5.0); Alkaline Phosphatase 104 U/L (45-117); Aspartate Amino Transferase 27 U/L (0-37); Bilirubin,Total < 0.39 MG/DL (0.20-1.00); Blood Urea Nitrogen 20 MG/DL (7-18); Calcium 8.5 MG/DL (8.5-10.1); Carbon Dioxide 26 MMOL/L (21-32); Estimated Glom Filtration Rate 51 ML/MIN; Glucose 96 MG/DL (74-106); Osmolality,Calculated 249.8 MOS/KG (273-304); Potassium 5.3 MMOL/L (3.5-5.1); Sodium 123 MMOL/L (136-145); Total Protein 6.8 G/DL (6.4-8.2)
[2021-03-10] MEDS ORDERED: FUROSEMIDE 40 MG/4 ML VIAL IV STA (18:48)
[2021-03-10] MEDS ORDERED: ALBUTEROL/IPRATROPIUM 3 ML NEB RESP TX STA (19:45)
[2021-03-10] MEDS ORDERED: ONDANSETRON 4 MG/2 ML VIAL IV PRN (19:49)
[2021-03-10] MEDS ORDERED: ALBUTEROL/IPRATROPIUM 3 ML NEB RESP TX PRN (19:49)
[2021-03-10] MEDS ORDERED: rOPINIRole 1 MG TABLET PO SCH (23:45)
[2021-03-10] MEDS ORDERED: amLODIPine 10 MG TABLET ONE (23:46)
[2021-03-11] MEDS: carvediloL 6.25 MG TABLET PO SCH ×2 (00:16→09:03)
[2021-03-11 05:06] LABS: Basophils % 0.4 % (0.0-0.8); Eosinophils # 0.1 10*3/uL (0.0-0.87); Eosinophils % 1.1 % (0.00-10.9); Hematocrit 24.9 VOL% (35.7-47.0); Hemoglobin 7.3 GM/DL (12.0-16.0); Immature Granulocytes % 0.4 %; Immature Granulocytes Absolute 0.03 #; Lymphocytes # 1.1 10*3/uL (1.4-4.0); Lymphocytes % 15.9 % (21.3-54.2); Mean Corpuscular HGB Conc 29.3 GM/DL (32-36); Mean Corpuscular Volume 74.3 FL (87-102); Mean Platelet Volume 10.5 FL (9.6-12.0); Monocytes % 17.3 % (1.7-12.7); NRBC # 0.02 10*3/uL; Neutrophils % 64.9 % (38.7-73.9); Platelet Count 266 T/CUMM (130-400); Red Blood Count 3.35 MC/CUMM (3.8-5.5); Red Cell Distribution Width 18.6 % (9.3-17.3)
[2021-03-11 05:29] LABS: Alanine Aminotransferase 30 U/L (13-56); Albumin 2.8 G/DL (3.4-5.0); Alkaline Phosphatase 91 U/L (45-117); Aspartate Amino Transferase 25 U/L (0-37); Bilirubin,Total < 0.39 MG/DL (0.20-1.00); Blood Urea Nitrogen 14 MG/DL (7-18); Calcium 8.5 MG/DL (8.5-10.1); Carbon Dioxide 34 MMOL/L (21-32); Estimated Glom Filtration Rate 67 ML/MIN; Glucose 76 MG/DL (74-106); Osmolality,Calculated 261.7 MOS/KG (273-304); Potassium 3.5 MMOL/L (3.5-5.1); Sodium 131 MMOL/L (136-145); Total Protein 6.3 G/DL (6.4-8.2)
[2021-03-11 05:58] LABS: Eosinophils 2 % (0-10); Hypochromia 1+; Lymphocytes 19 % (20-55); Microcytosis 1+; Platelet Estimate Adequate; Segmented Neutrophils 66 % (50-85); Total Cells Counted 100
[2021-03-11] MEDS ORDERED: amLODIPine 10 MG TABLET PO SCH (09:00)
[2021-03-11] MEDS ORDERED: PANTOPRAZOLE 40 MG VIAL IV SCH (09:00)
[2021-03-11] MEDS ORDERED: FUROSEMIDE 40 MG TABLET PO SCH (09:00)
[2021-03-11] MEDS: APIXABAN 2.5 MG TABLET PO SCH ×2 (09:02)
[2021-03-11] MEDS: FUROSEMIDE 40 MG/4 ML VIAL IV SCH ×2 (09:02→15:39)
[2021-03-11] MEDS ORDERED: SODIUM CHLORIDE 0.9% 1,000 ML IV PRN (09:04)
[2021-03-11] MEDS ORDERED: POTASSIUM CHLORIDE 20 MEQ TABLET PO PRN (09:04)
[2021-03-11] MEDS: PANTOPRAZOLE 40 MG TABLET PO SCH ×2 (09:53→21:14)
[2021-03-11] MEDS: amLODIPine 2.5 MG TABLET PO SCH (09:53)
[2021-03-11] MEDS: HYDROXYCHLOROQUINE 200 MG TABLET PO SCH ×2 (10:00→21:15)
[2021-03-11] MEDS: ISOSORBIDE MONONITRATE 30 MG TABLET PO SCH (10:00)
[2021-03-11] MEDS: LORATADINE 10 MG TABLET PO SCH (10:01)
[2021-03-11] MEDS: RANOLAZINE 500 MG TABLET PO SCH ×2 (10:01→21:14)
[2021-03-11] MEDS: carvediloL 12.5 MG TABLET PO SCH ×2 (10:02→21:14)
[2021-03-11] MEDS: ACETAMINOPHEN 325 MG TABLET PO PRN (12:27)
[2021-03-11] MEDS ORDERED: FUROSEMIDE 40 MG/4 ML VIAL IV ONE (14:35)
[2021-03-11] MEDS: traMADol 50 MG TABLET PO PRN (18:33)
[2021-03-11] MEDS: ATORVASTATIN 20 MG TABLET PO SCH (21:14)
[2021-03-11] MEDS: POTASSIUM CHLORIDE 10 MEQ TABLET PO SCH (21:14)
[2021-03-11] MEDS: rOPINIRole 1 MG TABLET PO SCH (21:15)
[2021-03-11] MEDS: LOSARTAN 25 MG TABLET PO SCH (21:15)
[2021-03-11] MEDS: POLYETHYLENE GLYCOL POWDER 17 GM PACK PO SCH (21:15)
[2021-03-12] MEDS: traMADol 50 MG TABLET PO PRN (02:36)
[2021-03-12 07:03] LABS: Calcium 8.4 MG/DL (8.5-10.1); Osmolality,Calculated 266.4 MOS/KG (273-304); Potassium 4.3 MMOL/L (3.5-5.1)
[2021-03-12 07:12] LABS: Basophils # 0.1 10*3/uL (0.0-0.2); Basophils % 0.8 % (0.0-0.8); Eosinophils # 0.3 10*3/uL (0.0-0.87); Eosinophils % 3.3 % (0.00-10.9); Hematocrit 29.3 VOL% (35.7-47.0); Immature Granulocytes % 0.4 %; Immature Granulocytes Absolute 0.03 #; Lymphocytes # 1.3 10*3/uL (1.4-4.0); Lymphocytes % 17.6 % (21.3-54.2); Mean Corpuscular Volume 76.1 FL (87-102); Mean Platelet Volume 11.5 FL (9.6-12.0); Monocytes % 16.2 % (1.7-12.7); Neutrophils % 61.7 % (38.7-73.9); Platelet Count 240 T/CUMM (130-400); Red Blood Count 3.85 MC/CUMM (3.8-5.5); White Blood Count 7.6 T/CUMM (4-12)
[2021-03-12 07:20] LABS: Hemoglobin 8.5 GM/DL (12.0-16.0)
[2021-03-12 07:22] LABS: Eosinophils 1 % (0-10); Hypochromia Slight; Lymphocytes 14 % (20-55); Microcytosis Slight; Platelet Estimate Normal; Segmented Neutrophils 77 % (50-85); Total Cells Counted 100
[2021-03-12] MEDS: RANOLAZINE 500 MG TABLET PO SCH ×2 (09:34→20:58)
[2021-03-12] MEDS: POLYETHYLENE GLYCOL POWDER 17 GM PACK PO SCH ×2 (09:34→20:58)
[2021-03-12] MEDS: LORATADINE 10 MG TABLET PO SCH (09:34)
[2021-03-12] MEDS: FUROSEMIDE 40 MG/4 ML VIAL IV SCH (09:34)
[2021-03-12] MEDS: carvediloL 12.5 MG TABLET PO SCH ×2 (09:34→20:58)
[2021-03-12] MEDS: ISOSORBIDE MONONITRATE 30 MG TABLET PO SCH (09:34)
[2021-03-12] MEDS: HYDROXYCHLOROQUINE 200 MG TABLET PO SCH ×2 (09:34→20:58)
[2021-03-12] MEDS: PANTOPRAZOLE 40 MG TABLET PO SCH ×2 (09:34→20:58)
[2021-03-12] MEDS: amLODIPine 2.5 MG TABLET PO SCH (09:35)
[2021-03-12] MEDS: POTASSIUM CHLORIDE 10 MEQ TABLET PO SCH ×2 (09:48→20:58)
[2021-03-12] MEDS: FUROSEMIDE 40 MG TABLET PO SCH (16:40)
[2021-03-12] MEDS: rOPINIRole 1 MG TABLET PO SCH (20:58)
[2021-03-12] MEDS: ATORVASTATIN 20 MG TABLET PO SCH (20:58)
[2021-03-12] MEDS: LOSARTAN 25 MG TABLET PO SCH (20:58)
[2021-03-13 06:26] LABS: Calcium 8.3 MG/DL (8.5-10.1); Osmolality,Calculated 279.4 MOS/KG (273-304); Potassium 4.3 MMOL/L (3.5-5.1)
[2021-03-13 07:00] LABS: Basophils # 0.1 10*3/uL (0.0-0.2); Basophils % 0.7 % (0.0-0.8); Eosinophils # 0.4 10*3/uL (0.0-0.87); Eosinophils % 5.3 % (0.00-10.9); Hematocrit 29.7 VOL% (35.7-47.0); Hemoglobin 8.3 GM/DL (12.0-16.0); Immature Granulocytes % 0.3 %; Immature Granulocytes Absolute 0.02 #; Lymphocytes # 1.5 10*3/uL (1.4-4.0); Lymphocytes % 19.3 % (21.3-54.2); Mean Corpuscular HGB Conc 27.9 GM/DL (32-36); Mean Corpuscular Volume 78.4 FL (87-102); Mean Platelet Volume 10.4 FL (9.6-12.0); Monocytes % 17.5 % (1.7-12.7); Neutrophils % 56.9 % (38.7-73.9); Platelet Count 258 T/CUMM (130-400); Red Blood Count 3.79 MC/CUMM (3.8-5.5); Red Cell Distribution Width 19.1 % (9.3-17.3); White Blood Count 7.6 T/CUMM (4-12)
[2021-03-13 07:42] LABS: Eosinophils 1 % (0-10); Lymphocytes 20 % (20-55); Segmented Neutrophils 66 % (50-85); Total Cells Counted 100
[2021-03-13 07:43] LABS: Hypochromia 1+; Microcytosis 1+; Ovalocytes Few; Platelet Estimate Normal
[2021-03-13] MEDS: HYDROXYCHLOROQUINE 200 MG TABLET PO SCH ×2 (08:49→21:57)
[2021-03-13] MEDS: POTASSIUM CHLORIDE 10 MEQ TABLET PO SCH ×2 (08:49→21:57)
[2021-03-13] MEDS: RANOLAZINE 500 MG TABLET PO SCH ×2 (08:49→21:57)
[2021-03-13] MEDS: LORATADINE 10 MG TABLET PO SCH (08:50)
[2021-03-13] MEDS: amLODIPine 2.5 MG TABLET PO SCH (08:50)
[2021-03-13] MEDS: ISOSORBIDE MONONITRATE 30 MG TABLET PO SCH (08:50)
[2021-03-13] MEDS: PANTOPRAZOLE 40 MG TABLET PO SCH ×2 (08:50→21:57)
[2021-03-13] MEDS: carvediloL 12.5 MG TABLET PO SCH ×2 (08:50→21:57)
[2021-03-13] MEDS: BISACODYL 5 MG TABLET PO SCH ×3 (08:53→23:51)
[2021-03-13] MEDS: FUROSEMIDE 40 MG TABLET PO SCH ×2 (08:53→15:49)
[2021-03-13] MEDS: POLYETHYLENE GLYCOL POWDER 17 GM PACK PO SCH ×2 (09:20→21:57)
[2021-03-13] MEDS ORDERED: POLYETHYLENE GLYCOL 3350/ELECTROLYTES 4,000 ML BOTTLE PO ONE ×2 (18:00→18:30)
[2021-03-13] MEDS ORDERED: MAGNESIUM CITRATE 300 ML BOTTLE PO ONE (21:00)
[2021-03-13] MEDS: rOPINIRole 1 MG TABLET PO SCH (21:56)
[2021-03-13] MEDS: LOSARTAN 25 MG TABLET PO SCH (21:56)
[2021-03-13] MEDS: ATORVASTATIN 20 MG TABLET PO SCH (21:56)
[2021-03-14 06:45] LABS: Calcium 8.5 MG/DL (8.5-10.1); Osmolality,Calculated 271.8 MOS/KG (273-304); Potassium 3.1 MMOL/L (3.5-5.1)
[2021-03-14 06:55] LABS: Basophils # 0.1 10*3/uL (0.0-0.2); Basophils % 0.7 % (0.0-0.8); Eosinophils # 0.5 10*3/uL (0.0-0.87); Eosinophils % 6.6 % (0.00-10.9); Hematocrit 30.3 VOL% (35.7-47.0); Hemoglobin 8.6 GM/DL (12.0-16.0); Immature Granulocytes % 0.4 %; Immature Granulocytes Absolute 0.03 #; Lymphocytes # 1.5 10*3/uL (1.4-4.0); Lymphocytes % 20.2 % (21.3-54.2); Mean Corpuscular HGB Conc 28.4 GM/DL (32-36); Mean Corpuscular Volume 77.1 FL (87-102); Mean Platelet Volume 11.3 FL (9.6-12.0); Monocytes % 12.9 % (1.7-12.7); Neutrophils % 59.2 % (38.7-73.9); Platelet Count 239 T/CUMM (130-400); Red Blood Count 3.93 MC/CUMM (3.8-5.5); White Blood Count 7.6 T/CUMM (4-12)
[2021-03-14 06:56] LABS: Hypochromia 2+; Microcytosis 1+
[2021-03-14 06:57] LABS: Ovalocytes Slight; Platelet Estimate Normal; Target Cells Slight
[2021-03-14] MEDS ORDERED: propofoL 200 MG/20 ML VIAL IV ONE (09:09)
[2021-03-14] MEDS ORDERED: LIDOCAINE 2% 5 ML VIAL ONE (09:09)
[2021-03-14] MEDS ORDERED: ETOMIDATE 20 MG/10 ML VIAL IV ONE (09:09)
[2021-03-14] MEDS: FUROSEMIDE 40 MG TABLET PO SCH ×2 (12:09→16:29)
[2021-03-14] MEDS: POTASSIUM CHLORIDE 20 MEQ TABLET PO SCH ×3 (12:10→22:48)
[2021-03-14] MEDS: amLODIPine 2.5 MG TABLET PO SCH ×3 (12:10→13:46)
[2021-03-14] MEDS: carvediloL 12.5 MG TABLET PO SCH ×2 (12:10→22:49)
[2021-03-14] MEDS: ISOSORBIDE MONONITRATE 30 MG TABLET PO SCH (12:10)
[2021-03-14] MEDS: LORATADINE 10 MG TABLET PO SCH (12:10)
[2021-03-14] MEDS: POLYETHYLENE GLYCOL POWDER 17 GM PACK PO SCH ×2 (12:10→22:49)
[2021-03-14] MEDS: HYDROXYCHLOROQUINE 200 MG TABLET PO SCH (12:11)
[2021-03-14] MEDS: PANTOPRAZOLE 40 MG TABLET PO SCH ×2 (12:11→22:48)
[2021-03-14] MEDS: RANOLAZINE 500 MG TABLET PO SCH ×2 (12:11→22:49)
[2021-03-14] MEDS ORDERED: HYDROXYCHLOROQUINE 200 MG TABLET PO SCH (14:01)
[2021-03-14] MEDS: traMADol 50 MG TABLET PO PRN (22:48)
[2021-03-14] MEDS: LOSARTAN 25 MG TABLET PO SCH (22:49)
[2021-03-14] MEDS: ATORVASTATIN 20 MG TABLET PO SCH (22:49)
[2021-03-14] MEDS: rOPINIRole 1 MG TABLET PO SCH (22:49)
[2021-03-15 05:16] LABS: Calcium 8.5 MG/DL (8.5-10.1); Osmolality,Calculated 272.7 MOS/KG (273-304); Potassium 4.5 MMOL/L (3.5-5.1)
[2021-03-15 05:33] LABS: Basophils # 0.1 10*3/uL (0.0-0.2); Basophils % 0.8 % (0.0-0.8); Eosinophils # 0.4 10*3/uL (0.0-0.87); Eosinophils % 5.6 % (0.00-10.9); Hematocrit 27.4 VOL% (35.7-47.0); Immature Granulocytes % 0.3 %; Immature Granulocytes Absolute 0.02 #; Lymphocytes # 1.5 10*3/uL (1.4-4.0); Lymphocytes % 23.1 % (21.3-54.2); Mean Corpuscular HGB Conc 27.7 GM/DL (32-36); Mean Corpuscular Volume 78.7 FL (87-102); Mean Platelet Volume 10.1 FL (9.6-12.0); Monocytes % 13.3 % (1.7-12.7); Neutrophils % 56.9 % (38.7-73.9); Platelet Count 249 T/CUMM (130-400); Red Blood Count 3.48 MC/CUMM (3.8-5.5); Red Cell Distribution Width 19.2 % (9.3-17.3); White Blood Count 6.5 T/CUMM (4-12)
[2021-03-15 05:37] LABS: Hemoglobin 7.6 GM/DL (12.0-16.0)
[2021-03-15 05:47] LABS: Hypochromia 2+; Microcytosis 1+; Ovalocytes Slight
[2021-03-15 05:48] LABS: Platelet Estimate Normal; Polychromasia Slight
[2021-03-15] MEDS: POLYETHYLENE GLYCOL POWDER 17 GM PACK PO SCH ×2 (09:31→21:31)
[2021-03-15] MEDS: RANOLAZINE 500 MG TABLET PO SCH ×2 (09:33→21:24)
[2021-03-15] MEDS: amLODIPine 2.5 MG TABLET PO SCH (09:33)
[2021-03-15] MEDS: carvediloL 12.5 MG TABLET PO SCH (09:34)
[2021-03-15] MEDS: POTASSIUM CHLORIDE 20 MEQ TABLET PO SCH ×2 (09:34→21:26)
[2021-03-15] MEDS: FUROSEMIDE 40 MG TABLET PO SCH ×2 (09:34→17:08)
[2021-03-15] MEDS: APIXABAN 2.5 MG TABLET PO SCH ×2 (09:34→21:27)
[2021-03-15] MEDS: PANTOPRAZOLE 40 MG TABLET PO SCH ×2 (09:34→21:26)
[2021-03-15] MEDS: LORATADINE 10 MG TABLET PO SCH (09:34)
[2021-03-15] MEDS: ISOSORBIDE MONONITRATE 30 MG TABLET PO SCH (09:34)
[2021-03-15] MEDS: traMADol 50 MG TABLET PO PRN ×2 (09:42→21:27)
[2021-03-15] MEDS: rOPINIRole 1 MG TABLET PO SCH (21:24)
[2021-03-15] MEDS: carvediloL 6.25 MG TABLET PO SCH (21:26)
[2021-03-15] MEDS: ATORVASTATIN 20 MG TABLET PO SCH (21:27)
[2021-03-15] MEDS: LOSARTAN 25 MG TABLET PO SCH (21:27)
[2021-03-16 04:40] LABS: Calcium 8.3 MG/DL (8.5-10.1); Osmolality,Calculated 281.4 MOS/KG (273-304); Potassium 5.7 MMOL/L (3.5-5.1)
[2021-03-16 05:16] LABS: Basophils % 0.5 % (0.0-0.8); Eosinophils # 0.5 10*3/uL (0.0-0.87); Hematocrit 28.2 VOL% (35.7-47.0); Immature Granulocytes % 0.4 %; Immature Granulocytes Absolute 0.03 #; Lymphocytes # 1.6 10*3/uL (1.4-4.0); Lymphocytes % 21.9 % (21.3-54.2); Mean Corpuscular Volume 80.6 FL (87-102); Mean Platelet Volume 10.7 FL (9.6-12.0); Monocytes % 13.4 % (1.7-12.7); Neutrophils % 57.8 % (38.7-73.9); Platelet Count 259 T/CUMM (130-400); Red Cell Distribution Width 19.5 % (9.3-17.3); White Blood Count 7.5 T/CUMM (4-12)
[2021-03-16 05:17] LABS: Hemoglobin 7.6 GM/DL (12.0-16.0)
[2021-03-16 05:21] LABS: Hypochromia 2+; Microcytosis 1+; Ovalocytes Slight; Platelet Estimate Normal; Polychromasia Slight
[2021-03-16] MEDS: ISOSORBIDE MONONITRATE 30 MG TABLET PO SCH (09:19)
[2021-03-16] MEDS: POLYETHYLENE GLYCOL POWDER 17 GM PACK PO SCH ×2 (09:19→21:45)
[2021-03-16] MEDS: RANOLAZINE 500 MG TABLET PO SCH ×2 (09:20→21:45)
[2021-03-16] MEDS: LORATADINE 10 MG TABLET PO SCH (09:20)
[2021-03-16] MEDS: carvediloL 6.25 MG TABLET PO SCH ×2 (09:20→21:45)
[2021-03-16] MEDS: FUROSEMIDE 40 MG TABLET PO SCH ×2 (09:20→17:05)
[2021-03-16] MEDS: amLODIPine 2.5 MG TABLET PO SCH (09:20)
[2021-03-16] MEDS: APIXABAN 2.5 MG TABLET PO SCH ×2 (09:20→21:45)
[2021-03-16] MEDS: LOSARTAN 25 MG TABLET PO SCH (21:45)
[2021-03-16] MEDS: ATORVASTATIN 20 MG TABLET PO SCH (21:45)
[2021-03-16] MEDS: rOPINIRole 1 MG TABLET PO SCH (21:45)
[2021-03-16] MEDS: ACETAMINOPHEN 325 MG TABLET PO PRN (21:49)
[2021-03-17 05:47] LABS: Calcium 8.6 MG/DL (8.5-10.1); Osmolality,Calculated 277.5 MOS/KG (273-304)
[2021-03-17 05:56] LABS: Basophils # 0.1 10*3/uL (0.0-0.2); Eosinophils # 0.5 10*3/uL (0.0-0.87); Eosinophils % 7.4 % (0.00-10.9); Hematocrit 29.3 VOL% (35.7-47.0); Immature Granulocytes % 0.3 %; Immature Granulocytes Absolute 0.02 #; Lymphocytes # 1.7 10*3/uL (1.4-4.0); Lymphocytes % 27.3 % (21.3-54.2); Mean Corpuscular HGB Conc 27.6 GM/DL (32-36); Mean Corpuscular Volume 78.6 FL (87-102); Mean Platelet Volume 10.6 FL (9.6-12.0); Platelet Count 255 T/CUMM (130-400); Red Blood Count 3.73 MC/CUMM (3.8-5.5); Red Cell Distribution Width 19.4 % (9.3-17.3); White Blood Count 6.1 T/CUMM (4-12)
[2021-03-17 05:57] LABS: Hemoglobin 8.1 GM/DL (12.0-16.0)
[2021-03-17 06:03] LABS: Hypochromia 2+; Microcytosis 1+
[2021-03-17 06:04] LABS: Ovalocytes Slight; Platelet Estimate Normal
[2021-03-17] MEDS: ISOSORBIDE MONONITRATE 30 MG TABLET PO SCH (08:37)
[2021-03-17] MEDS: RANOLAZINE 500 MG TABLET PO SCH (08:38)
[2021-03-17] MEDS: carvediloL 6.25 MG TABLET PO SCH (08:38)
[2021-03-17] MEDS: APIXABAN 2.5 MG TABLET PO SCH (08:38)
[2021-03-17] MEDS: amLODIPine 2.5 MG TABLET PO SCH (08:38)
[2021-03-17] MEDS: FUROSEMIDE 40 MG TABLET PO SCH (08:38)
[2021-03-17] MEDS: LORATADINE 10 MG TABLET PO SCH (08:39)
[2021-03-17] MEDS: POLYETHYLENE GLYCOL POWDER 17 GM PACK PO SCH (08:39)
[2021-03-17 09:19] VITALS: BP 135/51
== END 2021-03-17 13:56 | disposition home health service (06) | DRG 377 ==
LOC: N.ED 17:09 → N.EDINP 19:46 → N.TELES 03-11 07:49
PROVIDERS: ADMIT Internal Medicine; ATTEND Internal Medicine